=== PATIENT | female | born 1965 | race Caucasian/White ===

== ENCOUNTER 2019-11-22 23:29 | Emergency (ER) | payer BC, SELFPAY ==
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
[2019-11-23 00:50] VITALS: BP 169/103; PULSE 113; RESP 18; TEMP 36.6; O2SAT 99; BMI 36.6
== END 2019-11-23 01:00 | disposition home or self-care (01) ==
LOC: ER 11-23 01:00
PROVIDERS: Emergency Provider Emergency Medicine; Family Provider Family Medicine; PCP Family Medicine
DX: F41.9 Anxiety disorder, unspecified (principal)
CPT/HCPCS: 12345; 96372; 99284; J2060

== ENCOUNTER 2020-06-06 08:24 | Outpatient (CLI) | payer OTHER, SELFPAY ==
--- NOTE | 2020-06-06 09:06 | MR_ITS ---
WS: [id number] MRI RIGHT SHOULDER NONCONTRAST TECHNIQUE: Sagittal T2, coronal T1, T2 and proton density imaging. Axial gradient PDE imaging. CLINICAL INFORMATION: S43.401A - Unspecified sprain of right shoulder joint, initial encounter COMPARISON: None. FINDINGS: Moderate degenerative arthritis at the AC joint. Mild edema. Subacromial and subdeltoid fluid. Full-t hickness tear of the supraspinatus with tendon retraction to the glenohumeral joint. Chronic atrophy of the infraspinatus which appears intact. Tiny insertional tear at the infraspinatus insertion. Tend inopathy infraspinatus. Normal teres minor. Normal subscapularis. Normal biceps tendon in the bicipital groove. Normal intra- articular biceps tendon. Glenoid labrum appears grossly normal. Moderate degenerative arthritis at th e glenohumeral joint with hypertrophic spurring. MR/MR shoulder RT wo con* [id number] IMPRESSION: 1. Moderate degenerative arthritis at the AC joint with mild edema. Subacromia l/subdeltoid fluid. 2. High-grade full-thickness tear of the supraspinatus with retraction to the level of glenohumeral joint. 3. Small insertional tear infraspinatus with tendinopathy. Mild chronic atroph y of the infraspinatus. 4. Normal teres minor and subscapularis. 5. Normal biceps tendon in the bicipital groove. 6. Glenoid labrum appears grossly normal.
== END 2020-06-06 08:25 | disposition home or self-care (01) ==
LOC: RADSHAW 08:25
PROVIDERS: Visit Provider Orthopaedic Surgery
DX: S46.811A Strain of other muscles, fascia and tendons at shoulder and upper arm level, right arm, initial encounter (principal); X58.XXXA Exposure to other specified factors, initial encounter; M75.101 Unspecified rotator cuff tear or rupture of right shoulder, not specified as traumatic; M19.011 Primary osteoarthritis, right shoulder
CPT/HCPCS: 73221

== ENCOUNTER → 2020-06-20 10:35 | Outpatient (BNVA) | payer OTHER, SELFPAY | PROVIDERS: Visit Provider Orthopaedic Surgery | DX: Z20.822 Contact with and (suspected) exposure to COVID-19 (principal) | CPT/HCPCS: 87635 ==

== ENCOUNTER 2020-06-26 06:34 | Day surgery (SDC) | payer OTHER, SELFPAY ==
[2020-06-19 11:03] VITALS: BMI 33.1
--- NOTE | 2020-06-19 11:54 | ANES.PREANE2 ---
Pre-Anesthetic Assessment Pre-Anesthetic Assessment: Height/Weight: Height 1.65 m Weight 90.265 kg Proposed Procedure: Operation Date: 06/26/20 10:55 Proposed Procedures p Rotator Cuff Repair [id number] M75.102(Not Applicable) - Chaitanya Ruggiero MD Was Beta Gonzalo taken within 24 hours: N/A Was Clonidine taken within 24 hours: N/A Social: Social History: No alcohol and No tobacco Exam: Pre-Anes Outpt Exam: alert, oriented x 3, clear to auscultation bilaterally and regular rate & rhythm Airway: Submandibular: WNL Cervical ROM: WNL MP: 2 Dentition: Full Metabolic: Metabolic: Morbid obesity and Thyroid Neuropsych: Neuropsych: Anxiety and Depression Anesthetic Plan: ASA status: 3 Anesthesia: Regional (specify below) (Interscalene nerve blk) Risk of > 500 ml blood loss (7ml/kg in children): No Data Anesthesia Cardiac Studies: No Data to Display
[2020-06-26] VITALS (12 sets, daily range): BP systolic 119–168; BP diastolic 84–95; PULSE 59–85; RESP 16–18; TEMP 36.1–36.4; O2SAT 88–100
--- NOTE | 2020-06-26 07:18 | P.ANESUD_ITS ---
Pre-Anesthetic Update Pre-Anesthetic Assessment: Date of Surgery/Procedure: 06/26/20 Preop Patricia gnosis: Rotator cuff tear Right shoulder Proposed Procedure: Operation Date: 06/26/20 08:05 Proposed Procedures p Shoulder Arthroscopy with rotator cuff repair(Right) - Chaitanya Ruggiero MD Any changes to Pre-Anesthetic Assessment?: No Exam: Pre-Anes Outpt Exam: alert, oriented x 3, clear to auscultation bilaterally and regular rate & rhythm Other Pertinent Information: Other Pertinent Information: Patient declined interscalene block Cardiac Studies: No Data to Display
[2020-06-26] MEDS: acetaminophen 500 mg Tablet 1000 MG PO (07:27)
[2020-06-26] MEDS: sodium chloride 0.9% 1,000 ML 30 ML IV (07:27)
[2020-06-26] MEDS: EPINEPHrine 1 mg/mL INJ 2 MG XX (09:05)
--- NOTE | 2020-06-26 10:23 | PM.OP ---
Operative Report Date of procedure: June 26, 2020 Pre-op Diagnosis: Rotator cuff tear Right shoulder Post-op diagnosis: same Post-op Diagnosis: Tear right rotator cuff, impingement, partial tear biceps tendon Post-op Findings: As above Procedure Done: Arthroscopic right rotator cuff repair, arthroscopic right biceps tenodesis, arthroscopic right subacromial decompression Implants: Coronado and Nephew Helicoil 4.5 mm anchors x2, Coronado and Nephew Helicoil 5.5 mm knotless x2, Coronado and Nephew Q fix x2 Pathology: none sent Surgeon: Chaitanya Ruggiero Anesthesia: General and Nerve Block (Interscalene block) Estimated blood loss (mL): 25 Complications: None Findings: Patient had a large tear of the right rotator cuff involving the superior most of the subscapularis with instability of the biceps tendon extending involving the entirety of the supraspinatus. The tendon was retracted approximately 2 centers but fairly mobile. She had anterior spurring of acromion. She had approximately a 50% tear of her biceps tendon as it entered the bicipital groove Condition: stable Disposition: PACU Procedure: The patient was taken to the operating room and given 2 g of Ancef. She is prepped and draped in the lateral position with her right arm in 15 pounds of traction. A timeout was performed. A posterior portal was made 2 cm inferior and medial to the posterior corner of the acromion. Scope cannula and trocar driven into the glenohumeral joint. An 8 mm inflow cannula was placed anteriorly. The diagnostic arthroscopy was performed. The large rotator cuff tear was noted. Partial tearing was identified in the biceps. Labral attachments were otherwise healthy and no significant chondromalacia was seen in the glenohumeral joint. Arthroscopy equipment was then removed and directed into the subacromial space. A lateral working portal was opened up with a scalpel blade and the anterior portal was redirected into the subacromial space. Utilizing the Coronado and Nephew Werewolf probe bursal tissue was removed. The leading edge of the acromion was outlined. A 5.5 mm acromionizer was introduced through the lateral portal and approximately 4 mm of anterior and inferior acromion removed, removing anterior spurs and making more room for the ultimate repair. The biceps tendon was elevated from the bicipital groove through the anterior portal. Through the lateral portal a shaver was used to debride the proximal bicipital groove. Through a lateral stab wound a Coronado and Nephew Q fix anchor was placed. It was passed around the biceps in a luggage tag fashion and secured tightly binding the biceps to the debrided groove. A second Q fix was placed 1 cm proximal and secured identical fashion. A werewolf incisor shaver were used to remove the remaining biceps stump. Attention was then focused on the rotator cuff. Utilizing the Coronado and Nephew Werewolf probe the bursal aspect of the cuff was visualized and articular sided adhesions were released. The greater tuberosity was debrided with an incisor shaver to provide a footprint for better healing. Through a lateral stab wound a 4.5 mm Coronado and Nephew Helicoil anchor was placed in the posterior medial bicipital groove. A Coronado and Nephew FirstPass suture passer was used to shuttle 1 limb of that Ultratape suture through the far posterior rotator cuff approximately 8 mm from the tendon edge and a second limb approximately 5 mm anterior to that. A second Q fix anchor was placed in the anterior medial footprint. And those 2 ultra tape sutures passed in identical fashion. The sutures secured drawing the medial rotator cuff to medial debrided bone. 1 limb of Q fix anchor from the biceps tenodesis was passed through the far anterior leading edge of the subscapularis and secured with half hitches paring that structure. Next to a lateral portal 1 tape from each medial row anchor was brought through the lateral portal. A 5.5 mm Coronado and Nephew Helicoil knotless anchor was placed no suture tensions is secured through that anchor. A second Coronado and Nephew Helicoil knotless anchor was placed anteriorly and laterally fixing the remaining sutures. The repair was probed and found to be stable. The shoulder was irrigated with saline. Portals are closed with 3-0 Prolene. Sterile dressings were applied. The patient placed in a sling, extubated, and taken to the recovery room in stable condition.
--- NOTE | 2020-06-26 10:33 | W.PM.OPSUD ---
Surgery/Procedure H&P Update DATE OF PROCEDURE: June 26, 2020 DATE H&P PERFORMED: 06/16/20 PREOP DIAGNOSIS: Rotator cuff tear Right shoulder PLANNED PROCEDURE: Operation Date: 06/26/20 08:05 Proposed Procedures p Shoulder Arthroscopy with rotator cuff repair(Right) - Chaitanya Ruggiero MD
[2020-06-26] MEDS: morphine 4 mg/mL SDV 1 mL 2 MG IVP ×2 (10:45→10:47)
--- NOTE | 2020-06-26 11:03 | SUR.PHASEI ---
1100 ANESTHESIA GOING TO GIVE PT A BLOCK TO ASSIST IN PAIN CONTROL
--- NOTE | 2020-06-26 11:19 | PC.NURSE ---
PT GIVEN NERVE BLOCK WHEN SHE ARRIVED IN OPS FROM PACU.
--- NOTE | 2020-06-26 11:20 | ANES.PROC ---
Anesthesia Procedures Procedure/Date: 06/26/20 Nerve Block ^: Nerve Block 1: Main Anesthesia: general anesthesia Time Out Performed: Yes Consent: requested by attending/covering physician, from patient, from other, risks and benefits reviewed and patient agrees to proceed Nerve block location: interscalene (R) Anesthesia monitors applied: pulse oximetry, EKG, BP cuff and oxygen Nerve block position: semi sitting Anesthetic Used: ropivicaine 0.5% and with decadron (3 mg) Amount of anesthesia used (mL): 20 Ultrasound used to: visualize and ID brachial plexus and visualize and ID interscalene groove Nerve Stimulator Used?: No Interscalene/Femoral BLK: 2 stimuplex 22 g needle used for position and inplane approach, visualize local anesthetic spread and no vascular puncture identified Injection: neg aspiration of heme and paresthesia +/- Patient Tolerated Procedure: well and no complications Complications: none Additional Comments: Patient requesting block in PACU
[2020-06-26] MEDS: oxyCODONE-APAP 5-325 mg Tablet 1 TAB PO (12:02)
--- NOTE | 2020-06-26 13:34 | ANE.PACU2 ---
Inpatient post-anesthesia follow up: Airway intact: Yes Vital signs: Temperature 97.6 F Pulse Rate 68 Respiratory Rate 18 Blood Pressure 167/84 Pulse Oximetry 93 Oxygen Delivery Me thod Room Air,Nasal Can nula Oxygen Flow Rate 2 Fraction of Inspir ed Oxygen Hydration adequate: Yes Nausea and vomiting: No Pain level: 2 Mental status: Baseline
== END 2020-06-26 12:34 | disposition home or self-care (01) ==
PROVIDERS: Visit Provider Orthopaedic Surgery
PROC: (CPT 29805; principal; 2020-06-26 07:55)
DX: M75.101 Unspecified rotator cuff tear or rupture of right shoulder, not specified as traumatic (principal); M25.811 Other specified joint disorders, right shoulder; S46.211A Strain of muscle, fascia and tendon of other parts of biceps, right arm, initial encounter; W00.0XXA Fall on same level due to ice and snow, initial encounter; Y93.29 Activity, other involving ice and snow; E66.01 Morbid (severe) obesity due to excess calories; Z68.33 Body mass index [BMI] 33.0-33.9, adult; F41.9 Anxiety disorder, unspecified; F32.9 Major depressive disorder, single episode, unspecified
CPT/HCPCS: 29826; 29827; 29828; 64415; 76942; C1713; J0171; J0690; J1100; J2270; J2370; J2405; J2704; J2795; J3010; J3490; J7030

== ENCOUNTER → 2022-03-08 11:43 | Outpatient (BNVA) | payer BC, SELFPAY | PROVIDERS: PCP Family Medicine; Visit Provider Family Medicine | DX: E03.9 Hypothyroidism, unspecified (principal); E78.2 Mixed hyperlipidemia; I10 Essential (primary) hypertension; R73.03 Prediabetes | CPT/HCPCS: 80053; 80061; 83036; 84439; 84443; 85025 ==

== ENCOUNTER → 2022-06-07 12:04 | Outpatient (BNVA) | payer BC, SELFPAY | PROVIDERS: PCP Family Medicine; Visit Provider Family Medicine | DX: I10 Essential (primary) hypertension (principal); E03.9 Hypothyroidism, unspecified; R73.03 Prediabetes; E78.2 Mixed hyperlipidemia | CPT/HCPCS: 80053; 84439; 84443 ==

== ENCOUNTER → 2022-11-09 15:36 | Outpatient (BNVA) | payer BC, SELFPAY | PROVIDERS: PCP Family Medicine; Visit Provider Student in an Organized Health Care Education/Training Program | DX: M17.12 Unilateral primary osteoarthritis, left knee | CPT/HCPCS: 73560; 73565 ==

== ENCOUNTER 2022-12-30 10:56 | Outpatient (CLI) | payer BC, MEDICAID, SELFPAY ==
--- NOTE | 2022-12-30 11:00 | MM_ITS ---
WS: [id number] SCREENING DIGITAL TOMOSYNTHESIS MAMMOGRAM WITH CAD HISTORY: SCREENING COMPARISON: 01/09/2018 and 06/03/2015 Bilateral CC and MLO with tomosynthesis views submitted. Synthetic mammography reviewed. Computer aid ed detection analyzed. Breast composition: The breasts are almost entirely fatty. No suspicious masses, microcalcifications or architectural distortion. IMPRESSION: MM/[place] [id number] BI-RADS: 1-Negative FOLLOW UP: 1 Year Follow-up
== END 2022-12-30 10:57 | disposition home or self-care (01) ==
LOC: MOBLMAM 11:02
PROVIDERS: PCP Family Medicine; Visit Provider Family Medicine
DX: Z12.31 Encounter for screening mammogram for malignant neoplasm of breast (principal)
CPT/HCPCS: 77063; 77067

== ENCOUNTER 2023-03-16 19:04 | Inpatient (IN) | payer BC, SELFPAY ==
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
[2023-03-16 19:01] VITALS: BP 128/78; PULSE 109; RESP 18; TEMP 36.1; O2SAT 95
[2023-03-16 19:22] LABS: Basophils % 0.2 %; Eosinophils % 0.4 %; Hematocrit 35.3 % (36-47); Lymphocytes % 37.1 %; Mean Corpuscular HGB Conc 33.7 g/dL (30-55); Mean Corpuscular Hemoglobin 32.5 pg (27-33); Mean Corpuscular Volume 96.4 fl (85-98); Mean Platelet Volume 9.9 fL (7.4-10.4); Monocytes # 0.2 10^3/uL (0.2-0.9); Monocytes % 2.4 %; Neutrophils # 4.88 10^3/uL (1.8-7.7); Neutrophils % 59.5 %; Nucleated Red Blood Cells % 0 %; Platelet Count 214 10^3/cmm (157-399); Red Blood Count 3.66 10^6/uL (3.85-5.65); Red Cell Distribution Width 13.1 % (12.1-15.1)
[2023-03-16 19:46] LABS: Alanine Aminotransferase 20 U/L (0-33); Albumin Level 4.2 g/dL (3.5-5.2); Alcohol Level 275 mg/dL (0-10); Alkaline Phosphatase 85 U/L (35-105); Blood Urea Nitrogen 11 mg/dL (6-20); Carbon Dioxide 20 mmol/L (22-29); Chloride 99 mmol/L (98-107); Globulin 3.2 g/dL (1.3-4.6); Glomerular Filtration Rate 85.6 mL/min (90-130); Glucose 112 mg/dL (65-115); Osmolality Calculated 284 mOsm/kg (285-295); Sodium 137 mmol/L (136-145); Total Bilirubin 0.2 mg/dL (0.15-1.2); Total Protein 7.4 g/dL (6.6-8.7)
[2023-03-16 19:52] LABS: Acetaminophen < 5.0 ug/mL (10-30); Anion Gap 21.2 (5-19); Aspartate Amino Transferase 26 U/L (0-32); Potassium 3.2 mmol/L (3.5-5.1); Salicylate < 0.3 mg/dL (3-10)
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
[2023-03-16 20:08] LABS: Amphetamines Screen Urine Negative (Negative); Barbiturates Screen Urine Negative (Negative); Benzodiazepines Screen Urine Positive (Negative); Cocaine Screen Urine Negative (Negative); Opiate Screen Urine Negative (Negative); PCP Screen Urine Negative (Negative); THC Screen Urine Negative (Negative)
--- NOTE | 2023-03-16 22:28 | PC.NURSE ---
Pt served with Copy of 96 rights by chiquis STODDARD and Security. Pt argumentative and denying need for further treatment. Pt insisting that she is going home to care for her mother and father.
[2023-03-16] MEDS: LORazepam 2 mg/mL INJ 10 mL MDV 1 MG IVP (22:51)
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
[2023-03-16 23:11] VITALS: BP 123/81; PULSE 94; RESP 18; TEMP 36.4; O2SAT 96
[2023-03-16 23:14] VITALS: BP 128/78; PULSE 109; RESP 18; TEMP 36.1; O2SAT 95
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
[2023-03-17] MEDS: acetaminophen 325 mg Tablet 650 MG PO (08:12)
[2023-03-17] MEDS: multivitamin therapeutic Tablet 1 TAB PO (08:13)
[2023-03-17] MEDS: thiamine 100 mg Tablet PO (08:13)
[2023-03-17] MEDS: hyDROXYzine 25 mg Capsule 50 MG PO (08:13)
[2023-03-17] MEDS: folic acid 1 mg Tablet PO (08:13)
[2023-03-17] MEDS: atorvastatin 40 mg Tablet 20 MG PO (08:13)
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
[2023-03-17 14:00] VITALS: BP 136/84; PULSE 85; RESP 20; TEMP 36.6; O2SAT 97
[2023-03-17] MEDS: sertraline 50 mg Tablet 25 MG PO (14:22)
[2023-03-17] MEDS: ibuprofen 600 mg Tablet PO (14:23)
[2023-03-17] MEDS: LORazepam 2 mg Tablet PO (14:41)
[2023-03-17 20:11] VITALS: BP 146/87; PULSE 96; RESP 16; TEMP 36.7; O2SAT 97
[2023-03-17] MEDS: escitalopram 10 mg Tablet PO (20:14)
[2023-03-17] MEDS: ALPRAZolam 0.5 mg Tablet PO (20:14)
[2023-03-17] MEDS: trazodone 50 mg Tablet 100 MG PO (20:14)
[2023-03-17] MEDS: prazosin 5 mg Capsule PO (20:14)
[2023-03-18 06:00] VITALS: RESP 16
[2023-03-18] MEDS: sertraline 50 mg Tablet 25 MG PO (10:05)
[2023-03-18] MEDS: folic acid 1 mg Tablet PO (10:05)
[2023-03-18] MEDS: multivitamin therapeutic Tablet 1 TAB PO (10:06)
[2023-03-18] MEDS: thiamine 100 mg Tablet PO (10:06)
[2023-03-18] MEDS: atorvastatin 40 mg Tablet 20 MG PO (10:06)
[2023-03-18 14:00] VITALS: BP 118/78; PULSE 74; RESP 16; TEMP 36.6; O2SAT 98
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
[2023-03-18] MEDS: hyDROXYzine 25 mg Capsule 50 MG PO (14:55)
[2023-03-18 15:25] VITALS: BP 118/78; PULSE 74; RESP 16; TEMP 36.6; O2SAT 98
== END 2023-03-18 16:15 | disposition home or self-care (01) | DRG 885 ==
LOC: ER 21:08 → NP 23:10
PROVIDERS: Admitting Provider Psychiatry & Neurology Psychiatry; Emergency Provider Emergency Medicine; PCP Family Medicine; Visit Provider Psychiatry & Neurology Psychiatry
DX: F33.1 Major depressive disorder, recurrent, moderate (principal); R45.851 Suicidal ideations; F41.1 Generalized anxiety disorder; F43.12 Post-traumatic stress disorder, chronic; F10.10 Alcohol abuse, uncomplicated; Y90.8 Blood alcohol level of 240 mg/100 ml or more; Z04.1 Encounter for examination and observation following transport accident; Z91.411 Personal history of adult psychological abuse; Z79.899 Other long term (current) drug therapy
CPT/HCPCS: 70450; 71260; 72125; 74177; 80053; 80306; 80307; 85025; 96374; 97165; 99285; J2060; Q9967

== ENCOUNTER → 2023-05-17 14:07 | Outpatient (BNVA) | payer BC, MEDICAID, SELFPAY | PROVIDERS: PCP Family Medicine; Visit Provider Physician Assistant | DX: M17.0 Bilateral primary osteoarthritis of knee (principal) | CPT/HCPCS: 73560; 73565 ==

== ENCOUNTER → 2023-07-06 11:04 | Outpatient (BNVA) | payer BC, SELFPAY | PROVIDERS: PCP Family Medicine; Visit Provider Family Medicine | DX: E03.9 Hypothyroidism, unspecified (principal) | CPT/HCPCS: 84439; 84443 ==

== ENCOUNTER 2023-09-05 09:16 | Outpatient (CLI) | payer OTHER, SELFPAY ==
--- NOTE | 2023-09-05 09:46 | XR_ITS ---
WS: [id number] LEFT KNEE: 3 VIEW(S) TECHNIQUE: AP, oblique(s) and lateral. HISTORY: Osteoarthritis of the left knee COMPARISON: 05/17/2023 Healing fracture involving the proximal fibular neck. Acute fracture was present on the prior study f rom 05/17/2023. Moderate tricompartment joint space narrowing with osteophytosis. Large marginal osteophytes. No bone destruction. No joint effusion. No soft tissue abnormality. XR/XR knee LT 1-2V [id number] IMPRESSION: 1. Moderate tricompartment osteoarthritis. 2. Healing fracture, nondisplaced proximal LEFT fibula.
== END 2023-09-05 09:17 | disposition home or self-care (01) ==
LOC: RAD 09:19
PROVIDERS: PCP Family Medicine; Visit Provider Dermatology
DX: Z02.71 Encounter for disability determination (principal); M17.12 Unilateral primary osteoarthritis, left knee; M25.762 Osteophyte, left knee
CPT/HCPCS: 73560

== ENCOUNTER → 2023-09-28 14:09 | Outpatient (BNVA) | payer BC, MEDICAID, SELFPAY | PROVIDERS: PCP Family Medicine; Visit Provider Physician Assistant | DX: M17.0 Bilateral primary osteoarthritis of knee | CPT/HCPCS: 20610; 73560; 73565; 99213; J3301 ==

== ENCOUNTER → 2023-10-11 13:52 | Outpatient (BNVA) | payer BC, MEDICAID, SELFPAY | PROVIDERS: PCP Family Medicine; Visit Provider Family Medicine | DX: E03.9 Hypothyroidism, unspecified (principal); R41.89 Other symptoms and signs involving cognitive functions and awareness; H53.8 Other visual disturbances; E55.9 Vitamin D deficiency, unspecified; R79.89 Other specified abnormal findings of blood chemistry | CPT/HCPCS: 80053; 80061; 82306; 82607; 82746; 84439; 84443; 85025; 85651; 86140 ==

== ENCOUNTER 2024-01-11 11:56 | Outpatient (CLI) | payer BC, MEDICAID, SELFPAY ==
--- NOTE | 2024-01-11 12:00 | MM_ITS ---
WS: [id number] BILATERAL 3D TOMOSYNTHESIS DIGITAL SCREENING MAMMOGRAM WITH CAD CLINICAL INFORMATION: SCREENING HISTORY: Screening mammogram. No current complaints. COMPARISON: 2022 TECHNIQUE: Bilateral CC and MLO views. FINDINGS: Fatty-replaced breasts bilaterally. No suspicious focal mass, asymmetry, calcifications, or technology solutions architect ural distortion. No evidence of malignancy. MM/MM scr BI tomosynthesis [id number] IMPRESSION: DENSITY: The breasts are almost entirely fatty. BI-RADS: 1 - Negative. FOLLOW UP: 1 Year Follow-up Recommend return to annual screening mammography.
== END 2024-01-11 11:57 | disposition home or self-care (01) ==
PROVIDERS: PCP Family Medicine; Visit Provider Family Medicine
DX: Z12.31 Encounter for screening mammogram for malignant neoplasm of breast (principal); R92.313 Mammographic fatty tissue density, bilateral breasts
CPT/HCPCS: 77063; 77067

== ENCOUNTER → 2024-08-20 13:45 | Outpatient (BNVA) | payer BC, MEDICAID, SELFPAY | PROVIDERS: PCP Family Medicine; Visit Provider Family Medicine | DX: I10 Essential (primary) hypertension (principal); E03.9 Hypothyroidism, unspecified; R73.03 Prediabetes; E78.2 Mixed hyperlipidemia; R79.89 Other specified abnormal findings of blood chemistry; E83.42 Hypomagnesemia; E55.9 Vitamin D deficiency, unspecified | CPT/HCPCS: 80053; 80061; 82306; 82607; 83036; 83735; 84439; 84443; 85025 ==

== ENCOUNTER → 2024-09-12 14:24 | Outpatient (BNVA) | payer BC, MEDICAID, SELFPAY | PROVIDERS: PCP Family Medicine; Visit Provider Physician Assistant | DX: M17.0 Bilateral primary osteoarthritis of knee (principal); M25.561 Pain in right knee; M25.562 Pain in left knee | CPT/HCPCS: 73560; 73565 ==

== ENCOUNTER → 2024-09-26 13:13 | Outpatient (BNVA) | payer BC, MEDICAID, SELFPAY | PROVIDERS: PCP Family Medicine; Visit Provider Physician Assistant | DX: G56.03 Carpal tunnel syndrome, bilateral upper limbs (principal); G56.23 Lesion of ulnar nerve, bilateral upper limbs | CPT/HCPCS: 73110 ==

== ENCOUNTER 2024-11-29 08:10 | Day surgery (SDC) | payer BC, MEDICAID, SELFPAY ==
[2024-11-29] VITALS (10 sets, daily range): BP systolic 107–119; BP diastolic 71–82; PULSE 75–100; RESP 15–20; TEMP 36.2–36.4; O2SAT 94–100; BMI 26.6
--- NOTE | 2024-11-29 08:33 | W.PM.OPSFHP ---
Same Day Surgery H&P Indication for Procedure/HPI DATE OF PROCEDURE: November 29, 2024 CHIEF COMPLAINT/INDICATIONFOR SURGICAL PROCEDURE: Right carpal tunnel syndrome, right cubital tunnel syndrome PREOP DIAGNOSIS: Right carpal tunnel syndrome, right cubital tunnel syndrome PLANNED PROCEDURE: Operation Date: 11/29/24 09:45 Proposed Procedures p Carpal Tunnel Release(Right) - Alok Flagler, DO s Cubital Tunnel Release(Right) - Laok Flagler, DO s Ulnar Nerve Transposition(Right) - Alok Catherine, DO Medications/Allergies* Home Medications ?Medication ?Instructions ?Recorded ?Confirmed ?Type ibuprofen 800 mg tablet 800 mg PO Q8H 11/27/24 11/28/24 History semaglutide 0.25 mg or 0.5 mg (2 0.5 mg SUBCUT .Q7D 11/27/24 11/28/24 History mg/3 mL) subcutaneous pen injector (Ozempic) Allergies/Adverse Reactions Allergy/AdvReac Type Severity Reaction Status Date / Time No Known Allergies Allergy Verified 11/13/24 15:30 Pertinent History/Comorbid Conditions* Family History (Updated 11/09/21 @ 14:18 by Sofy Kamara LPN) Diabetes Mother Father CAD (coronary artery disease) Mother Hyperlipidemia Mother Father Cancer Grandfather Father Grandmother Hypertension Father Denies family history of Clotting disorder Dementia Psychiatric illness Chronic kidney disease (CKD) Suicide Anesthesia complication Bleeding disorder Family history of premature coronary artery disease Lung disease Stroke Social History Smoking and tobacco/nicotine status: never used tobacco/nicotine Alcohol intake: never Pertinent Exam Findings alert, oriented x 3, operative site marked and procedure specific exam findings Please refer to detailed orthopedic examination on 10/16/2024 listed below: Bilateral Hand exam-positive Tinel's and positive Phalen's test. thenar atrophy and thenar muscle weakness. Full range of motion in fingers and wrist and fingers are warm and well-perfused with normal cap refill under 2 seconds. Radial pulse 2+, no intrinsic muscle weakness noted. Bilateral Elbow exam-positive Tinel's test Recommendations Risks and benefits of procedure reviewed and Patient/family agree to proceed Surgery/Procedure today Other Plans: Plan to proceed to the OR today for right carpal tunnel release, right cubital tunnel release with possible ulnar nerve transposition. Patient understands exams procedure risk benefits complication alternatives surgical nonsurgical treatment options. Understanding risk of surgery patient like to proceed with surgical invention. All questions answered at this time. Coding Level of Care Code Acute Code for Chg Steve
[2024-11-29] MEDS: acetaminophen 1,000 MG/100 ML PIGGYBACK 400 MG IV (08:51)
--- NOTE | 2024-11-29 09:10 | ANES.PREANE2 ---
Pre-Anesthetic Assessment Height/Weight: Height 1.65 m Weight 72.575 kg Temp Pulse Resp BP Pulse Ox O2 Del Method 97.6 F 75 18 119/77 100 Room Air 11/29/24 08:31 11/29/24 08:31 11/29/24 08:31 11/29/24 08:31 11/29/24 08:31 11/29/24 08:32 Preop Diagnosis: Right carpal tunnel syndrome, right cubital tunnel syndrome Operation Date: 11/29/24 09:45 Proposed Procedures p Carpal Tunnel Release(Right) - Alok Conway, DO s Cubital Tunnel Release(Right) - Alok Catherine, DO s Ulnar Nerve Transposition(Right) - Alok Catherine, DO Last intake: Intake Last Liquid Date 11/28/24 Last Liquid Time 19:00 Last Solid Date 11/28/24 Last Solid Time 19:00 Social No alcohol and No tobacco Exam alert, oriented x 3, clear to auscultation bilaterally and regular rate & rhythm Airway Submandibular: within normal limits Cervical ROM: within normal limits Mallampati: Class I GI Gastroesophageal Reflux Disease (well controlled) Neuropsych Anxiety and Depression Anesthetic Plan ASA status: 2 Anesthesia: General and Regional (specify below) (supraclvicular block on Right side) Medications/Allergies Home Medications ?Medication ?Instructions ?Recorded ?Confirmed ?Last Taken ?Type sertraline 100 mg tablet 100 mg PO DAILY 30 days #90 tabs 02/14/24 11/28/24 11/27/24 Rx pantoprazole 40 mg tablet,delayed 40 mg PO DAILY #90 tabs 10/22/24 11/29/24 11/29/24 07:00 Rx release alprazolam 1 mg tablet 1 mg PO BEDTIME PRN anxiety #90 10/31/24 11/28/24 11/27/24 Rx tabs ibuprofen 800 mg tablet 800 mg PO Q8H 11/27/24 11/28/24 11/28/24 History semaglutide 0.25 mg or 0.5 mg (2 0.5 mg SUBCUT .Q7D 11/27/24 11/28/24 11/19/24 History mg/3 mL) subcutaneous pen injector (Ozempic) Allergies Allergy/AdvReac Type Severity Reaction Status Date / Time No Known Allergies Allergy Verified 11/13/24 15:30 PFSH Anesthesia Family History Mother CAD (coronary artery disease) Diabetes Hyperlipidemia Grandfather Cancer Father Cancer Diabetes Hyperlipidemia Hypertension Grandmother Cancer Denies family history of Clotting disorder Dementia Psychiatric illness Chronic kidney disease (CKD) Suicide Anesthesia complication Bleeding disorder Family history of premature coronary artery disease Lung disease Stroke Social History Smoking and tobacco/nicotine status: never used tobacco/nicotine Alcohol intake: never Female Reproductive History Spontaneous abortions: No
[2024-11-29] MEDS: ceFAZolin 2,000 MG in sodium chloride 0.9% (plus) 50 ML 100 MG IV (09:29)
[2024-11-29] MEDS: ROPivacaine 0.5% SDV 30 mL 30 MG INJECTION (09:55)
[2024-11-29] MEDS: lidocaine-epi 1% PF 1:200,000 30 mL SDV 5 ML INJECTION (09:56)
--- NOTE | 2024-11-29 10:21 | P.BOP_ITS ---
Date of Procedure: 11/29/2024 Surgeon: Alok Alexander DO Software Performance Engineer(s): None Procedure(s) performed: Right carpal tunnel release Right cubital tunnel release (ulnar nerve decompression at the elbow) Findings of the procedure(s): Patient will procedure as planned without issues or complications. Patient had no subluxation of the ulnar nerve as a result no transposition was performed. Taken recovery in stable condition Estimated blood loss: 15 mL Specimen(s) removed: None Post-operative diagnosis: Right carpal tunnel syndrome, right cubital tunnel syndrome
--- NOTE | 2024-11-29 10:22 | P.OP_ITS ---
Operative Report Date of procedure: November 29, 2024 Surgeon: Alok Alexander DO Procedure: Preoperative diagnosis: Right carpal tunnel syndrome Right cubital tunnel syndrome Postop Diagnosis: Same Procedure done: Right carpal tunnel release Right?cubital tunnel tunnel release (ulnar nerve decompression at elbow) Surgeon: Alok Alexander DO Estimated blood loss: 15mL Tourniquet? 14 minutes IV fluids: 700 mL Complications: None Findings: See operative report narrative Condition: stable Disposition: same day Brief History: Patient's been seen and worked up in the outpatient setting and findings consistent with preoperative diagnosis.? Patient has right carpal tunnel syndrome as well as right?cubital tunnel syndrome which has been worked up in the outpatient setting has physical exam findings consistent with this as well as confirmatory nerve conduction/EMG nerve conduction study consistent with diagnosis.? Patient's failed conservative treatment.? As result through shared decision making agreed to proceed with? right carpal tunnel and right?cubital tunnel release with possible ulnar nerve transposition we talked about treatment options as far as nonoperative and operative intervention.? Understands risk benefits complication alternatives surgical nonsurgical treatment options.? Understanding risks patient agrees to proceed with surgical intervention. All questions answered, consent obtained in preoperative holding area. Procedure: Patient seen evaluate in the preoperative holding area.? Consent was reviewed and signed with patient.? Correct extremity marked.? Patient seen evaluated by anesthesia department once cleared for surgery was then taken back to the operative suite placed in supine position all bony prominences well-padded patient properly secured to bed.? right upper extremity placed onto armboard.? Nonsterile tourniquet applied right upper arm.? Patient then underwent anesthesia per the anesthesia department.? Patient's right upper extremity was then prepped and draped in standard orthopedic fashion.? Final timeout performed.? Patient received appropriate preoperative antibiotics. Esmarch was used exsanguinate the right upper extremity.? Tourniquet was insufflated to 250 mmHg. I started with the carpal tunnel release first.? I made a standard open carpal tunnel release starting with the distal most extent in the palm at the Palacios's cardinal line and the incision line was made in line with the fourth ray and ended just distal to the wrist crease.? Sharp scalpel incision was made through skin and subcutaneous tissue I then utilizing self retainer then began to dissect with dissection scissors split longitudinally the palmar fascia.? Next I then utilizing my ex assistant/program director Rosenda retractors subsequently utilizing scalpel feathered through the palmaris brevis as well as through the transverse carpal ligament distally.? Once I encountered the floor of the transverse carpal ligament and entered into the carpal tunnel I then switched to dissection scissors.? Carefully released the distal extent of the transverse carpal ligament to the palmar fat.? Care was to protect the recurrent branch and not injured this during this part of the case.? Next I then placed a [place] underneath the transverse carpal ligament proximally to protect the nerve in the carpal tunnel contents.? And then I subsequently under loupe magnification utilize my dissection scissors to release the transverse carpal ligament into the antebrachial fascia under direct visualization with care to keep my scissors with a curved ulnarly away from the palmar cutaneous branch.? The transverse carpal was then completely decompressed proximally and a [place] was then placed both distally and proximally throughout the carpal tunnel and had complete decompression of the nerve.? The nerve did appear to have hourglass shape as it went through the carpal tunnel.? With significant irritation noted around the nerve.? No masses were noted within the contents of the carpal tunnel.? This completed the carpal tunnel release and then I subsequently irrigated the wound bed and placed a wet Ray-Addis into the incision for later closure. Next marked out the landmarks of the right elbow of the medial epicondyle and olecranon and made a curvilinear incision following the course of the ulnar nerve at the medial aspect of the elbow.? Sharp scalpel incision was made throu gh skin and subcutaneous tissue.? Next I switched to Littler dissection scissors and spread in plane of the medial antebrachial cutaneous nerve branching which was protected throughout this part of the dissection.? Then I directly came down over the fascia and identified the 2 heads of the FCU fascia and split this right in the middle and subsequently identified my ulnar nerve distally.? This was then completely released distally under direct visualization and loupe magnification.? Once the nerve was then identified I then subsequently tracked this proximally and released this through Nogueira's ligament as well as complete decompression of the nerve proximally all the way past the intermuscular septum.? The nerve was completely released and decompressed both proximally and distally.? Ulnar nerve neurolysis performed and completed both proximally and distally with dissection scissors.? I then took the elbow through range of motion and there was no instability or subluxating of the ulnar nerve.? This completed?cubital tunnel release.? ?Next the wound bed was thoroughly irrigated.? Tourniquet was deflated.? Hemostasis was satisfactory at the?cubital tunnel release surgery site. I then inspected the carpal tunnel incision and this was found to have satisfactory hemostasis and all this was maintained through bipolar electrocautery.? At this point time I sequentially closed?cubital tunnel site with 3-0 Vicryl suture in a running horizontal mattress nylon stitch.? ? The carpal tunnel release surgery was then closed in standard interrupted mattress fashion.? Dressing was Xeroform 4 x 4's ABD Curlex soft roll and an Pedrito wrap has a bulky soft dressing with sling. Patient was then awakened from anesthesia and taken to PACU in stable condition. Disposition: Patient taken to PACU in stable condition recovering well.? Patient will receive appropriate discharge instructions as well as pain medication postoperatively.? We will follow-up with Ortho in the office in 2 weeks.? Mona todd understands agrees with current plan.? All questions answered.? Patient understands if any questions or concerns and contact the office for follow-up appointment..
--- NOTE | 2024-11-29 11:48 | ANE.PACU2 ---
Inpatient post-anesthesia follow up: Airway intact: Yes Vital signs: Temperature 97.2 F Pulse Rate 76 Respiratory Rate 18 Blood Pressure 107/71 Pulse Oximetry 95 Oxygen Delivery Me thod Room Air Oxygen Flow Rate Fraction of Inspir ed Oxygen Hydration adequate: Yes Nausea and vomiting: No Pain level: controlled Mental status: Baseline
== END 2024-11-29 11:32 | disposition home or self-care (01) ==
PROVIDERS: PCP Family Medicine; Visit Provider Student in an Organized Health Care Education/Training Program
PROC: (CPT 64721; principal; 2024-11-29 09:45)
PROC: (CPT 64718; 2024-11-29 09:45)
DX: G56.01 Carpal tunnel syndrome, right upper limb (principal); G56.21 Lesion of ulnar nerve, right upper limb; K21.9 Gastro-esophageal reflux disease without esophagitis; F41.8 Other specified anxiety disorders
CPT/HCPCS: 64718; 64721; J0131; J0690; J1100; J2371; J2405; J2704; J2795; J3490; J7030; J9999

== ENCOUNTER 2025-01-30 14:06 | Outpatient (CLI) | payer BC, MEDICAID, SELFPAY ==
--- NOTE | 2025-01-30 14:09 | MM_ITS ---
WS: [id number] BILATERAL 3D TOMOSYNTHESIS DIGITAL SCREENING MAMMOGRAPHY WITH CAD CLINICAL INFORMATION: SCREENING HISTORY: Screening mammogram. No current complaints. COMPARISON: 2023 TECHNIQUE: Bilateral CC and MLO views. FINDINGS: Scattered fibroglandular densities bilaterally. No suspicious focal mass, asymmetry, calcifications, or architectural distortion. No evidence of malignancy. MM/MM scr BI tomosynthesis [id number] IMPRESSION: DENSITY: There are scattered areas of fibroglandular density. BI-RADS: 1 - Negative. FOLLOW UP: 1 Year Follow-up Recommend return to annual screening mammography.
== END 2025-01-30 14:07 | disposition home or self-care (01) ==
LOC: RAD 14:07
PROVIDERS: PCP Family Medicine; Visit Provider Family Medicine
DX: Z12.31 Encounter for screening mammogram for malignant neoplasm of breast (principal); R92.323 Mammographic fibroglandular density, bilateral breasts
CPT/HCPCS: 77063; 77067